=== PATIENT | female | born 1990 | race Caucasian/White ===

== ENCOUNTER 2016-08-23 14:51 | Emergency (ER) | payer BC ==
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
[~2016-08-23 14:51] MED LIST: ACETAMINOPHEN325 MG PO; AMBIEN10 MG PO; APNO TOP; DERMOPLAST SPRA56 GM TOP; MOTRIN800 MG PO; PERCOCET 5-3251 EACH PO; PHENERGAN25 M1 PO; PRENATAL 1+1)(P1 TAB PO; PROVENTIL OR V6.7 GM INH; TUCKS1 EACH TOP
== END 2016-08-23 16:29 | disposition disaster alternative care site (69) ==
LOC: GACC 14:51
DX: S00.83XA Contusion of other part of head, initial encounter (principal); S20.419A Abrasion of unspecified back wall of thorax, initial encounter; S60.411A Abrasion of left index finger, initial encounter; F41.9 Anxiety disorder, unspecified; F17.210 Nicotine dependence, cigarettes, uncomplicated; Y04.0XXA Assault by unarmed brawl or fight, initial encounter
CPT/HCPCS: J1885; J2550